=== PATIENT | male | born 1960 | race American Indian/Alaskan Native ===

== ENCOUNTER 2019-08-19 10:17 | Outpatient (CLI) | payer MEDICARE ==
--- NOTE | 2019-08-19 12:10 | XRay Report ---
BONE SURVEY HISTORY: Monoclonal gammopathy. COMPARISON: None. TECHNIQUE: 20 views of the axial and central appendicular skeleton obtained. FINDINGS: Skull: No suspicious lytic or sclerotic osseous lesions. Cervical spine: No suspicious lytic or sclerotic osseous lesions. Chest and Ribs: No suspicious lytic or sclerotic osseous lesions. Humeri and femurs: A single suspicious subcentimeter lytic lesion of the proximal left humerus. No sc lerotic margin. No suspicious lesion of the right humerus or bilateral femurs. Thoracic and lumbar spine: Suspicious lucencies in T8, T9 and T10 vertebral bodies on the lateral tho racic spine image. No suspicious lesions of the lumbar spine Pelvis: No suspicious lytic or sclerotic osseous lesions. Additional findings: Too numerous to count skin lesions suggest neurofibromatosis. IMPRESSION: 1. A suspicious subcentimeter lytic lesion of the left proximal humerus and suspicious lucencies of t he T8, T9 and T10 vertebral bodies. 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 Signer Name: Gabino Martinez MD Signed: 08/19/2019 12:06 PM Workstation Name: [id number]
== END 2019-08-19 10:18 | disposition home or self-care (01) ==
LOC: XRAY 10:17
PROVIDERS: ATTEND Internal Medicine Hematology & Oncology
DX: D47.2 Monoclonal gammopathy (principal)
CPT/HCPCS: 77074

== ENCOUNTER 2019-12-07 09:47 | Outpatient (CLI) | payer MEDICARE ==
--- NOTE | 2019-12-07 11:11 | Magnetic Resonance Report ---
MR THORACIC SPINE WITHOUT CONTRAST HISTORY: Leukopenia, bone lesions at T8, T9 and T10 on skeletal survey, neurofibromatosis. TECHNIQUE: Multisequence, multiplanar MRI without contrast. COMPARISON: Bone survey dated 08/19/2019. FINDINGS: Previous metastatic bone survey was reviewed with suggestion of bone lesions at T8-T10. MRI demonstrates no evidence for bony lesions throughout the thoracic spine. There is normal height and alignment of the thoracic vertebra. Normal bone signal. There is mild disc desiccation throughout the thoracic spine but no significant disc space narrowing, bulging disc or herniation. The posterior elements are intact and unremarkable. No significant facet arthropathy. The posterior r ibs are intact. The thoracic spinal cord is normal size and signal intensity throughout. Exiting thoracic nerve roots are unremarkable. No neurofibromas or schwannomas are identified. The pa raspinal soft tissues are unremarkable. 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 IMPRESSION: Unremarkable MRI of the thoracic spine. Previously described bone lesions noted on bone survey are no t demonstrated on MRI. Signer Name: Tramaine Ortega Jr, MD Signed: 12/07/2019 11:06 AM Workstation Name: [id number]
== END 2019-12-07 09:48 | disposition home or self-care (01) ==
LOC: MRI 09:47
PROVIDERS: ATTEND Internal Medicine Hematology & Oncology
DX: D72.818 Other decreased white blood cell count (principal); M48.04 Spinal stenosis, thoracic region
CPT/HCPCS: 72146